=== PATIENT | male | born 1980 | race Caucasian/White ===

== ENCOUNTER 2017-04-28 13:18 | Outpatient (CLI) | payer BC ==
--- NOTE | 2017-04-28 15:31 | ULT ---
BILATERAL LOWER EXTREMITY VENOUS DOPPLER: Date: 04/28/17 PROVIDED CLINICAL HISTORY: Right lower leg pain and edema. FINDINGS: Wyman scale and color Doppler sonography with spectral analysis performed of the bilateral common fem oral, femoral, popliteal, posterior tibial, greater saphenous, and profunda femoral veins, demonstra ting a normal sonographic appearance to each. IMPRESSION: No sonographic evidence for lower extremity deep venous thrombosis. POS: MARIA G
== END 2017-04-28 13:19 | disposition home or self-care (01) ==
LOC: ULT 13:18
PROVIDERS: ATTEND Family Medicine
DX: L03.115 Cellulitis of right lower limb (principal); E66.01 Morbid (severe) obesity due to excess calories
CPT/HCPCS: 93970

== ENCOUNTER 2017-06-17 19:30 | Outpatient (CLI) | payer BC | END 2017-06-17 19:31 | disposition home or self-care (01) | LOC: SLEEPLAB 19:30 | PROVIDERS: ATTEND Family Medicine | DX: G47.33 Obstructive sleep apnea (adult) (pediatric) (principal); E66.9 Obesity, unspecified; R06.83 Snoring; I10 Essential (primary) hypertension | CPT/HCPCS: 95811 ==